=== PATIENT | male | born 1945 | race Caucasian/White ===

== ENCOUNTER → 2018-08-24 14:03 | Outpatient (CLI) | payer OTHER, SELFPAY ==
[2018-08-24 14:50] LABS: Add Manual Diff / Slide Review NO; Basophils Absolute Auto 0 /uL (0-100); Basophils Percent Auto 0.6 % (0-2); Eosinophils Absolute Auto 100 /uL (0-450); Eosinophils Percent Auto 1.2 % (2-4); Hematocrit 46.4 % (41-53); Hemoglobin 15.3 g/dL (13.5-17.5); Lymphocytes Absolute Auto 2500 /uL (1100-4500); Lymphocytes Percent Auto 35.3 % (25-40); Mean Corpuscular HGB Conc 32.9 % (30-36); Mean Corpuscular Hemoglobin 30.3 PG (26-34); Mean Corpuscular Volume 91.9 fL (80-100); Monocytes Absolute Auto 600 /uL (0-900); Monocytes Percent Auto 7.9 % (3-14); Neutrophils Absolute Auto 3900 /uL (1500-7000); Platelet Count 193 X10^3/uL (150-400); Red Blood Cell Count 5.05 X10^6/uL (4.5-5.9); Red Cell Distribution Width 13.9 % (11.6-14.8)
[2018-08-24 15:03] LABS: Alanine Aminotransferase 55 IU/L (21-72); Albumin 4.7 g/dL (3.5-5.0); Albumin Globulin Ratio 1.5 (1.0-2.8); Alkaline Phosphatase 63 U/L (38-126); Aspartate Aminotransferase 52 IU/L (17-59); Blood Urea Nitrogen 12 mg/dL (9-20); Calcium 9.6 mg/dL (8.4-10.2); Carbon Dioxide 25 mmol/L (22-32); Chloride 101 mmol/L (98-107); Cholesterol 186 mg/dL (140-199); Estimated Glomerular Filt Rate > 60.0 mL/min (>60); Globulin 3.2 g/dL (1.7-4.1); Glucose 103 mg/dL (80-110); HDL Cholesterol 76 mg/dL (40-60); HEMOLYSIS < 15 (0-50); LDL Cholesterol Calculated 89 mg/dL (<100); Potassium 4.3 mmol/L (3.4-5.1); Sodium 137 mmol/L (137-145); Total Protein 7.9 g/dL (6.3-8.2); Triglycerides 103 mg/dL (35-150)
[2018-08-24 15:28] LABS: Thyroid Stimulating Hormone 3.62 uIU/mL (0.47-4.68)
[2018-08-24 15:32] LABS: Prostate Specific Antigen Scrn 0.342 ng/mL (0.1-4.0)
== END ==
PROVIDERS: PCP Family Medicine; Visit Provider Family Medicine
DX: E78.5 Hyperlipidemia, unspecified (principal); I10 Essential (primary) hypertension; N40.1 Benign prostatic hyperplasia with lower urinary tract symptoms; Z12.5 Encounter for screening for malignant neoplasm of prostate
CPT/HCPCS: 36415; 80053; 80061; 84443; 85025; G0103

== ENCOUNTER → 2018-11-15 13:15 | Outpatient (CLI) | payer OTHER, SELFPAY ==
[2018-11-15 15:06] LABS: Prostate Specific Antigen 0.378 ng/mL (0.10-4.00)
== END ==
PROVIDERS: Visit Provider Urology
DX: N40.1 Benign prostatic hyperplasia with lower urinary tract symptoms (principal); N13.8 Other obstructive and reflux uropathy
CPT/HCPCS: 36415; 84153

== ENCOUNTER → 2019-09-05 13:40 | Outpatient (CLI) | payer OTHER, SELFPAY ==
[2019-09-05 14:37] LABS: Add Manual Diff / Slide Review NO; Basophils Absolute Auto 0 /uL (0-100); Basophils Percent Auto 0.4 % (0-2); Eosinophils Absolute Auto 0 /uL (0-450); Eosinophils Percent Auto 0.4 % (2-4); Hematocrit 44.8 % (41-53); Hemoglobin 15.4 g/dL (13.5-17.5); Lymphocytes Absolute Auto 1800 /uL (1100-4500); Lymphocytes Percent Auto 25.6 % (25-40); Mean Corpuscular HGB Conc 34.3 % (30-36); Mean Corpuscular Hemoglobin 31.4 PG (26-34); Mean Corpuscular Volume 91.4 fL (80-100); Monocytes Absolute Auto 500 /uL (0-900); Monocytes Percent Auto 6.3 % (3-14); Neutrophils Absolute Auto 4900 /uL (1500-7000); Neutrophils Percent Auto 67.3 % (50-75); Platelet Count 199 X10^3/uL (150-400); Red Cell Distribution Width 13.7 % (11.6-14.8); White Blood Cell Count 7.2 X10^3/uL (4.5-11.0)
[2019-09-05 15:01] LABS: BUN Creatinine Ratio 12.5 (6-22); Blood Urea Nitrogen 10 mg/dL (9-20); Calcium 9.7 mg/dL (8.4-10.2); Carbon Dioxide 26 mmol/L (22-32); Chloride 103 mmol/L (98-107); Cholesterol 179 mg/dL (140-199); Estimated Glomerular Filt Rate > 60.0 mL/min (>60); Glucose 114 mg/dL (80-110); HDL Cholesterol 62 mg/dL (40-60); HEMOLYSIS < 15 (0-50); LDL Cholesterol Calculated 91 mg/dL (<100); Potassium 4.1 mmol/L (3.4-5.1); Sodium 138 mmol/L (137-145); Triglycerides 128 mg/dL (35-150)
== END ==
PROVIDERS: PCP Student in an Organized Health Care Education/Training Program; Referring Provider Student in an Organized Health Care Education/Training Program; Visit Provider Student in an Organized Health Care Education/Training Program
DX: R53.83 Other fatigue (principal); E78.5 Hyperlipidemia, unspecified; I10 Essential (primary) hypertension; N40.1 Benign prostatic hyperplasia with lower urinary tract symptoms; Z12.5 Encounter for screening for malignant neoplasm of prostate
CPT/HCPCS: 36415; 80048; 80061; 83036; 85025; G0103

== ENCOUNTER → 2020-04-23 17:04 | Outpatient (CLI) | payer OTHER, SELFPAY ==
--- NOTE | 2020-04-23 | DI.US.S_ITS ---
PROCEDURE: US SCROTUM INDICATIONS: Scrotal swelling. TECHNIQUE: Real-time scanning was performed of the scrotum and testicles, with image documentation. Color and pulse Doppler interrogation was performed of both testicles. COMPARISON: None. FINDINGS: Right: Testicle is normal in size at 4.8 x 2.7 x 2.6 cm, and homogenous in echotexture. Epididymis is normal in overall size and morphology. There is a large cystic structure with minimal internal echo lateral to the right scrotum measuring 10 x 6 x 5 cm. No varicoceles. Overlying scrotal skin is normal in thickness. Left: Testicle is normal in size at 4.6 x 2.2 x 2.9 cm, and homogeneous in echotexture. Epididymis is normal in overall size and morphology. No hydrocele or varicoceles. Overlying scrotal skin is normal in thickness. Doppler: Color and pulse Doppler demonstrate normal and symmetric arterial flow in both testicles. IMPRESSION: 1. Normal testicles bilaterally. No testicular mass or findings to suggest testicular torsion. 2. A large cystic structure lateral to the right scrotum measuring 10 x 6 x 5 cm. Differential diagnosis include a large hydrocele, spermatocele or epididymal cyst. Dictated by: Fred Sanders M.D. on 04/24/2020 at 9:30 Approved by: Fred Sanders M.D. on 04/24/2020 at 9:35
== END ==
PROVIDERS: PCP Student in an Organized Health Care Education/Training Program; Referring Provider Student in an Organized Health Care Education/Training Program; Visit Provider Student in an Organized Health Care Education/Training Program
DX: N50.89 Other specified disorders of the male genital organs (principal)
CPT/HCPCS: 76870

== ENCOUNTER → 2021-02-05 13:55 | Outpatient (CLI) | payer OTHER, SELFPAY ==
[2021-02-05 14:49] LABS: Add Manual Diff / Slide Review NO; Basophils Absolute Auto 100 /uL (0-100); Basophils Percent Auto 0.9 % (0-2); Eosinophils Absolute Auto 200 /uL (0-450); Hemoglobin 15.3 g/dL (13.5-17.5); Lymphocytes Absolute Auto 2400 /uL (1100-4500); Lymphocytes Percent Auto 30.5 % (25-40); Mean Corpuscular Hemoglobin 31.6 PG (26-34); Mean Corpuscular Volume 92.8 fL (80-100); Monocytes Absolute Auto 500 /uL (0-900); Monocytes Percent Auto 6.7 % (3-14); Neutrophils Absolute Auto 4700 /uL (1500-7000); Neutrophils Percent Auto 59.9 % (50-75); Platelet Count 183 X10^3/uL (150-400); Red Blood Cell Count 4.85 X10^6/uL (4.5-5.9); Red Cell Distribution Width 14.2 % (11.6-14.8); White Blood Cell Count 7.8 X10^3/uL (4.5-11.0)
[2021-02-05 15:16] LABS: Alanine Aminotransferase 17 IU/L (<50); Albumin 4.3 g/dL (3.5-5.0); Albumin Globulin Ratio 1.3 (1.0-2.8); Alkaline Phosphatase 71 U/L (38-126); Aspartate Aminotransferase 33 IU/L (17-59); BUN Creatinine Ratio 12.5 (6-22); Bilirubin Total 0.8 mg/dL (0.2-1.3); Blood Urea Nitrogen 9 mg/dL (9-20); Calcium 9.6 mg/dL (8.4-10.2); Carbon Dioxide 24 mmol/L (22-32); Chloride 107 mmol/L (98-107); Cholesterol 192 mg/dL (140-199); Estimated Glomerular Filt Rate > 60.0 mL/min (>60); Globulin 3.3 g/dL (1.7-4.1); Glucose 104 mg/dL (80-110); HDL Cholesterol 80 mg/dL (40-60); HEMOLYSIS < 15 (0-50); LDL Cholesterol Calculated 92 mg/dL (<100); Potassium 4.2 mmol/L (3.4-5.1); Sodium 139 mmol/L (137-145); Total Protein 7.6 g/dL (6.3-8.2); Triglycerides 100 mg/dL (35-150)
[2021-02-05 15:45] LABS: Prostate Specific Antigen 0.237 ng/mL (0.10-4.00)
[2021-02-05 16:12] LABS: Thyroid Stimulating Hormone 1.87 uIU/mL (0.47-4.68)
[2021-02-06 01:24] LABS: Hemoglobin A1C% w Est Avg Glu 5.1 % (4.0-6.0)
== END ==
PROVIDERS: PCP Student in an Organized Health Care Education/Training Program; Referring Provider Student in an Organized Health Care Education/Training Program; Visit Provider Student in an Organized Health Care Education/Training Program
DX: I10 Essential (primary) hypertension (principal); Z00.00 Encounter for general adult medical examination without abnormal findings; Z12.5 Encounter for screening for malignant neoplasm of prostate
CPT/HCPCS: 36415; 80053; 80061; 83036; 84153; 84443; 85025

== ENCOUNTER → 2022-01-28 15:32 | Outpatient (CLI) | payer OTHER, SELFPAY ==
--- NOTE | 2022-01-28 15:35 | DI.US.S_ITS ---
PROCEDURE: US ABD AORTA ANEURYSM SCREEN INDICATIONS: Personal history of nicotine dependence TECHNIQUE: Real time scanning was performed of the aorta and iliac arteries, with image documentation. COMPARISON: None. FINDINGS: The proximal aorta is 2.8 cm. The mid aorta is 2.5 cm. The distal aorta is 2.1 cm. The right common iliac artery is 1.4 cm. The left common iliac artery is 1.4 cm. IMPRESSION: Negative for abdominal aortic aneurysm. Dictated by: Gabe Mcgraw M.D. on 01/28/2022 at 16:18 Approved by: Gabe Mcgraw M.D. on 01/28/2022 at 16:19
== END ==
PROVIDERS: PCP Internal Medicine; Referring Provider Internal Medicine; Visit Provider Internal Medicine
DX: Z13.6 Encounter for screening for cardiovascular disorders (principal); Z87.891 Personal history of nicotine dependence
CPT/HCPCS: 76706

== ENCOUNTER → 2023-09-08 13:33 | Outpatient (CLI) | payer OTHER, SELFPAY ==
--- NOTE | 2023-09-08 13:35 | DI.ECHO.S_ITS ---
[facility] +---------+ : : [address] [place] : : : : [id number] : : : : Phone: [phone]---------+ Echocardiogram Report + + :Name: PHILIPP ARMSTRONG Study Date: 09/08/2023 Height: 73 in : :[facility] ReadingLocation: Weight: 185 lb : : Gender: Male BSA: 2.1 m2 : :: 1945 Age: 78 yrs BP: 140/100 mmHg: :Reason For Study: ATRIAL FIBRILLATION : :Ordering Physician: ELIZABETH, : :YANI Performed By: Asael Nichols : :Referring: YANI JOHNSON : + + Interpretation Summary The patient was in atrial fibrillation with heart rates between 64-101 bpm during the exam. The ejection fraction is estimated to be 55-60%. Diastolic function could not be accurately assessed due to atrial fibrillation. The left atrium is mildly dilated. The right ventricle is normal in size and function. There is mild mitral regurgitation. There is mild aortic regurgitation. There is mild tricuspid regurgitation. The right ventricular systolic pressure is estimated to be at least 28 mmHg based on an estimated right atrial pressure of 3 mm Hg. The ascending aorta is mildly enlarged, 4.0 cm. Procedure: A two-dimensional transthoracic echocardiogram with color flow and Doppler was performed. The study quality was technically adequate. There is no prior echocardiogram noted for this patient. The patient was in atrial fibrillation with heart rates between 64-101 bpm during the exam. Left Ventricle: The left ventricle is normal in size and wall thickness. The ejection fraction is estimated to be 55-60%. Diastolic function could not be accurately assessed due to atrial fibrillation. Right Ventricle: The right ventricle is normal in size and function. Atria: The left atrium is mildly dilated. The right atrium is moderately dilated. The interatrial septum grossly appears intact with no obvious evidence for an atrial septal defect. Mitral Valve: The mitral valve is normal in structure and function. There is no mitral valve stenosis. There is mild mitral regurgitation. Aortic Valve: The aortic valve is trileaflet. The aortic valve is slightly calcified. There is no aortic valve stenosis. There is mild aortic regurgitation. Tricuspid Valve: The tricuspid valve is normal in structure and function. There is no tricuspid stenosis. There is mild tricuspid regurgitation. The right ventricular systolic pressure is estimated to be at least 28 mmHg based on an estimated right atrial pressure of 3 mm Hg. Pulmonic Valve: The pulmonic valve is not well visualized. There is no pulmonic valvular stenosis. There is no pulmonic valvular regurgitation. Great Vessels: The aortic root is borderline dilated. The ascending aorta is mildly enlarged. The IVC is of normal diameter and collapses greater than 50% with a sniff. This suggests a low right atrial pressure of 3 mm Hg. Pericardium/ Pleura There is no pericardial effusion. There is no pleural effusion. MMode/2D Measurements & Calculations LVIDd: 5.0 cm LVOT diam: 2.3 cm LVIDs: 3.0 cm Ao root diam: 3.7 cm FS: 40.1 % asc Aorta Diam: 4.0 cm IVSd: 0.95 cm LVPWd: 0.75 cm LV rodas. diameter/BSA (cm/m^2): 2.4 LV sys. diameter/BSA (cm/m^2): 1.4 LA A2 area: 19.2 cm2 RA long axis: 5.2 cm LA A4 area: 22.6 cm2 RA area: 20.4 cm2 LA length (vol): 5.8 cm RA vol: 68.2 ml LA vol: 64.1 ml RA : 32.8 ml/m2 LA vol index: 30.8 ml/m2 IVC diam: 1.5 cm RVD1 (basal): 3.6 cm RVD2 (mid): 2.5 cm TAPSE: 2.2 cm Doppler Measurements & Calculations Ao V2 max: 139.5 cm/sec LVOT Max Jean Carlos: 73.3 cm/sec Ao V2 mean: 98.5 cm/sec LV V1 max P.2 mmHg Ao max P.8 mmHg LV V1 VTI: 15.4 cm Ao mean P.3 mmHg LINDA(I,D): 2.4 cm2 Ao V2 VTI: 25.7 cm LINDA(V,D): 2.1 cm2 sev ratio: 0.60 LINDA indexed to BSA (cm^2/m^2): 1.1 MV E max jean carlos: 95.1 cm/sec TR max jean carlos: 249.0 cm/sec MV A max jean carlos: 26.4 cm/sec TR max P.8 mmHg MV E/A: 3.6 PA V2 max: 82.9 cm/sec Med Peak E' Jean Carlos: 15.8 cm/sec PA V2 mean: 57.4 cm/sec E/E' med: 6.0 PA mean P.5 mmHg Lat Peak E' Jean Carlos: 15.5 cm/sec PA pr(Accel): 49.9 mmHg E/E' lat: 6.1 E/e' average: 6.1 MV dec time: 0.19 sec SV(LVOT): 61.5 ml Reading Physician:05:24 PM
== END ==
LOC: ECHO 13:34
PROVIDERS: PCP Registered Nurse; Referring Provider Registered Nurse; Visit Provider Registered Nurse
DX: I48.91 Unspecified atrial fibrillation (principal); I08.3 Combined rheumatic disorders of mitral, aortic and tricuspid valves; I77.89 Other specified disorders of arteries and arterioles
CPT/HCPCS: 93306

== ENCOUNTER 2023-11-03 13:03 | Day surgery (SDC) | payer OTHER, SELFPAY ==
--- NOTE | 2023-11-03 | PATH_ITS ---
[facility] Accession Number: [id number] No. of containers..02 Tissue . 01 Material submitted: . PART A: duodenum - DUODENUM PART B: gastrointestinal site - ANTRUM . 01 Diagnosis: Part A: DUODENUM: Duodenal mucosa with no diagnostic alterations. No active inflammation and no evidence of celiac disease. . Part B: ANTRUM: Gastric mucosa with minimal chronic inflammation. No Helicobacter organisms identified on H/E stain. No intestinal metaplasia, dysplasia, or malignancy identified. [facility] 11/08/2023 1521 Local . 01 Electronically signed: . Zheng Evans MD, Pathologist NPI- [id number] . 01 Gross description: . A. Received in formalin labeled with two identifiers and duodenal biopsy, are three malin soft tissue fragments 0.2 to 0.4 cm in greatest dimension. Submitted in cassette A1. . B. Received in formalin with two identifiers and antrum biopsy, are four malin soft tissue fragments 0.3 to 0.5 cm in greatest dimension. Submitted in cassette B1. ([id number]) /[facility] 11/08/2023 1521 Local . 01 Pathologist provided ICD-10: K29.30 . 01 CPT . 520549, [id number] Specimen Comment: A courtesy copy of this report has been sent to [phone] Performed at: 01 [facility] [address] [place] [address], [place], [place] [id number] MD Zheng Evans MD Phone: [phone]
[2023-11-03 13:47] VITALS: BP 150/90; PULSE 84; RESP 16; TEMP 36.8; O2SAT 98
[2023-11-03] MEDS: LACTATED RINGERS 1,000 ML 42 ML IV (13:59)
--- NOTE | 2023-11-03 14:07 | P.HP_ITS ---
History of Present Illness History of Present Illness Date Patient Seen: 11/03/23 Time Patient Seen: 14:07 Chief complaint: EGD w/poss bx Narrative: Hector is a 78-year-old man with B12 deficiency. No anemia. See prior office note for details. He has held his Eliquis. [facility] Medical History Depression Dizziness B12 deficiency Family History Mother Heart disease Family/Other Heart disease Alcohol abuse Substance abuse Social History Smoking Status: Former smoker alcohol intake: current Meds Home Medications and Allergies Home Medications Medication Instructions Recorded Confirmed Type finasteride 5 mg tablet 5 mg PO DAILY 05/15/20 11/03/23 History lisinopril 10 mg tablet 10 mg PO DAILY 05/15/20 11/03/23 History escitalopram oxalate 5 mg tablet 5 mg PO DAILY 06/01/23 11/03/23 History (Lexapro) apixaban 5 mg tablet (Eliquis) 5 mg PO BID 11/03/23 11/03/23 History Allergies Allergy/AdvReac Type Severity Reaction Status Date / Time No Known Drug Allergies Allergy Verified 11/03/23 13:39 Exam Vital Signs (past 8 hours): - 11/03/23 13:47 Temperature 98.2 F Pulse Rate 84 Respiratory Rate 16 Blood Pressure 150/90 H Pulse Oximetry 98 Oxygen Delivery Method Room Air Oxygen Delivery Method Room Air Const General: No acute distress Resp Effort & Inspection: normal respiratory effort Assessment & Plan Assessment and plan (1) Vitamin B12 deficiency (non anemic): Status: Acute Plan We reviewed the risks and benefits of esophagogastroduodenoscopy and he would like to proceed.
--- NOTE | 2023-11-03 14:27 | PM.OP.EGD ---
Operative Date/Time/Diagnoses Date of procedure: 11/03/23 Time of procedure: 14:27 Pre-op diagnosis: B12 deficiency Post-op diagnosis: same Procedure & Clinicians Study performed: Esophagogastroduodenoscopy Same procedure as scheduled: Yes Surgeon: Alexander Yoo Procedure Notes Procedure in detail: Surgeon: Alexander Yoo MD Anesthesia: Jenna Geiger CRNA A timeout was performed. A bite blocked was placed. The patient was positioned in the left lateral decubitus position. Anesthesia was administered. The endoscope was inserted through the bite block and passed through the esophagus and stomach and into the duodenum. The duodenal mucosa appeared normal. Random biopsies were taken from the duodenal mucosa with cold forceps. The scope was withdrawn into the duodenal bulb and no abnormalities were seen. The scope was withdrawn into the stomach. Mild antritis was noted and random biopsies were taken of the antrum with cold forceps. The rest of the stomach was normal. The scope was retroflexed and a small hiatal hernia was noted. The scope was withdrawn into the esophagus and hiatal hernia was about 2-3 cm. The remainder of the esophagus was normal. The scope was withdrawn. The patient was awakened and brought to recovery. Sedation time: 6 minutes Findings: Mild antritis and small hiatal hernia Post-procedure Disposition: PACU
[2023-11-03 14:31] VITALS: BP 133/89; PULSE 74; RESP 16; TEMP 37.2; O2SAT 99
[2023-11-03 14:37] VITALS: BP 136/82; PULSE 87; RESP 13; TEMP 37.2; O2SAT 96
[2023-11-03 14:42] VITALS: BP 137/87; PULSE 85; RESP 14; TEMP 37.1; O2SAT 96
[2023-11-03 14:56] VITALS: BP 135/85; PULSE 80; RESP 18; TEMP 37.1; O2SAT 97
== END 2023-11-03 15:03 | disposition home or self-care (01) ==
PROVIDERS: PCP Registered Nurse; Referring Provider Surgery; Visit Provider Surgery
PROC: 0DJ08ZZ Inspection of Upper Intestinal Tract, Via Natural or Artificial Opening Endoscopic (ICD-10-PCS; CPT 43235; principal; 2023-11-03 14:15)
DX: E53.8 Deficiency of other specified B group vitamins (principal); K29.50 Unspecified chronic gastritis without bleeding; K44.9 Diaphragmatic hernia without obstruction or gangrene
CPT/HCPCS: 43239; J2704

== ENCOUNTER → 2024-05-19 10:29 | Outpatient (CLI) | payer OTHER, SELFPAY ==
--- NOTE | 2024-05-19 10:31 | DI.MRI.S_ITS ---
PROCEDURE: MR HEAD/BRAIN WO/W CON INDICATIONS: dizziness TECHNIQUE: Noncontrast axial T1 spin echo, axial T2 fast spin echo, sagittal and axial FLAIR, coronal T2 fast spin echo, axial gradient echo, axial diffusion and ADC through the brain. After the administration of contrast, axial and coronal and sagittal T1 spin echo with fat saturation through the brain. COMPARISON: None. FINDINGS: Image quality: Excellent. CSF spaces: Basal cisterns are patent. No extra-axial fluid collections. Ventricles are normal in size and shape. Brain: No midline shift. No intracranial bleeds or masses. No abnormal intracranial enhancement. There is cerebral volume loss for age. There is periventricular white matter chronic small vessel ischemic change. The brainstem appears normal. Diffusion-weighted images demonstrate no acute infarct. No chronic ischemic insults. Normal intravascular flow voids are present. Skull and face: Calvarial marrow is normal in signal. Orbits appear normal. Sinuses: Sinuses demonstrate minimal scattered mucosal thickening. Fluid is present within the right mastoid air cells. IMPRESSION: 1. No acute intracranial process. 2. Moderate atrophy and chronic microvascular ischemic changes. Dictated by: Carlee Thakur M.D. on 05/21/2024 at 11:58 Approved by: Carlee Thakur M.D. on 05/21/2024 at 12:40
== END ==
LOC: MRI 10:30
PROVIDERS: PCP Registered Nurse; Referring Provider Registered Nurse; Visit Provider Registered Nurse
DX: G31.9 Degenerative disease of nervous system, unspecified (principal); R42 Dizziness and giddiness
CPT/HCPCS: 70553; A9579

== ENCOUNTER → 2024-06-28 14:34 | Outpatient (CLI) | payer OTHER, SELFPAY ==
--- NOTE | 2024-06-28 14:39 | DI.RAD.S_ITS ---
PROCEDURE: XR ANKLE LT MIN 3V INDICATIONS: Injury to LT ankle TECHNIQUE: 3 views of the ankle were acquired. COMPARISON: None. FINDINGS: There is lucency in the superior lateral medial talar dome which could be an osteochondral injury. There is mild medial malleolar soft tissue swelling there is moderate lateral malleolar soft tissue swelling. There is no convincing evidence of fracture or displacement. There are degenerative changes seen at the talar navicular joint with navicular spurring. Bones: No fractures or dislocations. Ankle mortise is normally aligned. There may be an osteochondral injury of the superior medial patellar dome further evaluation by MRI if clinically indicated.. IMPRESSION: Medial and lateral malleolar soft tissue swelling. Suspect possible osteochondral injury medial superior talar dome. Further evaluation with MRI as clinically indicated. Dictated by: Donn Alexander M.D. on 06/29/2024 at 10:38 Approved by: Donn Alexander M.D. on 06/29/2024 at 11:00
== END ==
PROVIDERS: PCP Registered Nurse; Referring Provider Registered Nurse; Visit Provider Registered Nurse
DX: S99.912A Unspecified injury of left ankle, initial encounter (principal); M79.89 Other specified soft tissue disorders; X58.XXXA Exposure to other specified factors, initial encounter
CPT/HCPCS: 73610